=== PATIENT | female | born 1945 | race Caucasian/White ===

== ENCOUNTER → 2016-10-15 17:52 | Outpatient (CLI) | payer MEDICARE ==
[2015-05-01 15:53] VITALS: BMI 32.8
[~2016-10-15 17:52] MED LIST: ACETAMINOPHEN500 M1 PO; ASPIRIN81 MG PO; ATIVAN1 MG PO; BENADRYL50 MG PO; BUMEX 1 MG TAB1 MG PO; CO Q-10100 MG PO; CORTISPORIN CR7.5 GM TOPICAL; COUMADIN1 MG PO; COUMADIN2 MG PO; COUMADIN5 MG PO; CRANBERRY475 MG PO; EDARBYCLOR 40-1 EACH PO; FISH OIL 1,2001 CA1 PO; GLUCOPHAGE500 MG PO; HCTZ25 MG; HYDROCHLOROTHIA25 MG PO; HYDROCODON-ACE1 EAC7 PO; HYDROCODONE-APA1 TAB PO; K-TAB10 MEQ PO; LASIX40 MG PO; LASIX80 MG PO; LEVAQUIN500 MG PO; LISINOPRIL10 MG; LISINOPRIL5 MG GT; MAGNESIUM OXID250 MG PO; MEDROL DOSE PACK4 MG PO; MULTI-DAY VITAM1 TAB PO; MULTIPLE VITAMI1 TA1 PO; NORCO 5/325 TAB1 TA1 PO; NORVASC2.5 MG PO; NORVASC5 MG PO; POTASSIUM CHLO10 ME1 PO; POTASSIUM99 M1 PO; SUPER B COMPLE150 MG PO; VANCOMYCIN250 MG/51 PO; XARELTO15 MG PO
== END | disposition home or self-care (01) ==
LOC: D.MAMMO 13:00
DX: Z12.31 Encounter for screening mammogram for malignant neoplasm of breast (principal)

== ENCOUNTER → 2016-12-01 15:33 | Outpatient (CLI) | payer MEDICARE ==
[2015-05-01 15:53] VITALS: BMI 32.8
== END | disposition home or self-care (01) ==
LOC: D.MAMMO 09:00
DX: R92.2 Inconclusive mammogram (principal)

== ENCOUNTER → 2016-12-18 08:55 | Outpatient (CLI) | payer MEDICARE ==
[2015-05-01 15:53] VITALS: BMI 32.8
[~2016-12-18 08:55] MED LIST changes: -HYDROCODONE-APA1 TAB PO
[2016-12-18 09:45] LABS: INR 1.37 (0.85-1.17); PROTIME 16.8 SECONDS (11.6-15.0)
== END | disposition home or self-care (01) ==
LOC: D.US 08:55
PROVIDERS: Radiology Diagnostic Radiology
DX: N63 Unspecified lump in breast (principal)

== ENCOUNTER 2016-12-31 05:26 | Day surgery (SDC) | payer MEDICARE ==
[2016-12-30 13:43] LABS: BASOPHILS 0.2 % (0-2); EOSINOPHILS 1.8 % (0-7); HEMOGLOBIN 15.5 g/dL (12-16); IMMATURE GRANULOCYTES 0.1 % (0-5); LYMPHOCYTES 28.5 % (15-50); MCH 31.4 pg (26.0-34.0); MCV 95.3 fL (80.0-100.0); MEAN PLATELET VOLUME 12.6 fL (7.4-10.4); NEUTROPHILS 61.4 % (40-80); PLATELET COUNT 185 10x3/uL (130-400); RBC 4.93 10x6/uL (4.00-5.40); RDW 15.2 % (11.5-14.5); WBC 8.2 10x3/uL (4.8-10.8)
[2016-12-30 13:54] LABS: APTT 29.5 SECONDS (22.8-39.4); INR 1.56 (0.85-1.17); PROTIME 18.6 SECONDS (11.6-15.0)
[2016-12-30 13:56] LABS: ANION GAP 14.5 mmol/L (8-16); CALCIUM 8.7 mg/dL (8.5-10.1); CARBON DIOXIDE 27.1 mmol/L (21.0-32.0); CREATININE - SERUM 1.3 mg/dL (0.6-1.3); POTASSIUM - SERUM 3.6 mmol/L (3.5-5.1)
[2016-12-31] MEDS ORDERED: HYDROCODONE-APA1 TAB PO (13:27)
== END 2016-12-31 16:45 | disposition home or self-care (01) ==
LOC: D.OPS 05:26
PROVIDERS: Surgery
DX: C50.412 Malignant neoplasm of upper-outer quadrant of left female breast (principal); D68.51 Activated protein C resistance; I82.409 Acute embolism and thrombosis of unspecified deep veins of unspecified lower extremity; I26.99 Other pulmonary embolism without acute cor pulmonale; E11.9 Type 2 diabetes mellitus without complications; Z01.812 Encounter for preprocedural laboratory examination

== ENCOUNTER → 2017-04-15 19:04 | Outpatient (CLI) | payer MEDICARE ==
[2016-12-31 06:27] VITALS: BMI 33.7
[~2017-04-15 19:04] MED LIST changes: +HYDROCODONE-APA1 TAB PO
== END | disposition home or self-care (01) ==
LOC: D.LABREF 19:04
DX: L89.893 Pressure ulcer of other site, stage 3 (principal)

== ENCOUNTER 2017-04-21 21:49 | Inpatient (IN) | payer MEDICARE ==
[~2017-04-21] VITALS: Ht 162.6 cm; Wt 86.6 kg
--- NOTE | ~2017-04-21 | OP ---
PATIENT NAME: STEPHANIE GUO MEDICAL RECORD: [id number] :43 LOCATION:D.MS [id number] ADMISSION DATE:04/21/17 SURGEON: KP MOSHER DPM DATE OF OPERATION: 04/21/2017 PREOPERATIVE DIAGNOSES: Osteomyelitis, left first ray. POSTOPERATIVE DIAGNOSIS: Osteomyelitis, left first ray. PROCEDURE: Partial first ray amputation, left foot. ANESTHESIA: General per the anesthesia department with infiltration of lidocaine and Marcaine plain on the first ray, approximately 8 cc total. HEMOSTASIS: Left ankle tourniquet at 260 mmHg. PATHOLOGY: Specimen sent for gross and micro identification as well as a culture and sensitivity. PREOPERATIVE DETAILS: The patient was taken to the OR and placed on the operating table in a supine position followed by induction of general anesthesia and infiltration of local anesthetic. The left extremity was then prepped and draped in the usual aseptic technique followed by exsanguination and inflation of tourniquet. A 15 blade was used to create a linear incision over the dorsal aspect of the first metatarsal. The incision was carried distally and then encompassed the hallux, which was disarticulated and removed, and there was noted to be softening of the base of the proximal phalanx of the hallux as well as necrotic changes of the head of the first metatarsal consistent with invasion of bacteria. At this time, the distal half of the first metatarsal was removed with a sagittal saw. A copious irrigation of a pulse wire harness assembler was used to clean the wound. The sesamoids were also removed. Continued irrigation was performed. Good tissue was noted. Following flushing, the skin was closed with 4-0 nylon in a running interlocking technique. The wound was then packed with a quarter-inch iodoform gauze. The wound was then dressed. The tourniquet was deflated prior to dressing the wound, which showed excellent perfusion of the tissue. The wound was dressed then with Adaptic, 4 x 4 and Conform followed by Benjy very lightly. POSTOPERATIVE DETAILS: The patient tolerated the procedure well and left the OR with vital signs stable and vascular status at preoperative levels. The patient was transferred to recovery per anesthesia. The patient will be readmitted to the floor under Dr. Alfaro. TRANSINT:[id number] Voice Confirmation ID: [id number] DOCUMENT ID: [id number] KP MOSHER DPM CC: [id number] DICTATION DATE: 04/28/17 1236 CORDUROY BRUSHER OPERATOR: 04/28/171917 ADM IN [facility] [address] [id number]
[~2017-04-21 21:49] MED LIST changes: +EDARBYCLOR 40-1 EAC1 PO; -EDARBYCLOR 40-1 EACH PO
--- NOTE | 2017-04-21 22:45 | NUR ---
WALKING BY ROOM AND FOUND PT AND IN THERE. ADMISSIONS FAILED TO INFORM ANY MED SURG STAFF THAT THEY WERE LEAVING PT IN ROOM. PT IS ALERT AND ORIENTED AND ABLE TO VERBALIZE NEEDS. PT DENIES ANY PAIN AT THIS TIME. PT IS AMBULATORY BUT WAS INSTRUCTED TO CALL FOR ANY ASSISTANCE NEEDED. PT ORIENTED TO ROOM AND USE OF CALL LIGHT. WILL CONTINUE TO MONITOR. SIDE RAILS ARE UP X 2. BED IS IN LOWEST POSITION. CALL LIGHT IS WITHIN REACH.
--- NOTE | 2017-04-21 23:36 | NUR ---
ADMIT ASSESSMENT COMPLETED. 22G IV SITED TO LEFT FOREARM X 1 ATTEMPT. GOOD BLOOD RETURN. FLUSHES W/O DIFICULTY. ANTIBIOTIC HUNG PER ORDER. PRN TYLENOL ADMINISTERED FOR PAIN 11/13. NO FURTHER NEEDS AT THIS TIME. WILL MONITOR. SIDE RAILS X 2. BED LOW. CALL LIGHT IN REACH.
[2017-04-21] MEDS ORDERED: VITAMIN B COMPL1 TAB PO (23:46)
[2017-04-21] MEDS ORDERED: OSTEO BI-FLEX1 EAC1 PO (23:46)
[2017-04-21] MEDS ORDERED: VITAMIN D3400 UNI1 PO (23:46)
[2017-04-22] VITALS (7 sets, daily range): BP systolic 107–130; BP diastolic 68–85; Ht 162.6 cm; Wt 86.6 kg
--- NOTE | 2017-04-22 00:23 | NUR ---
WOUND CULTURE SENT TO LAB FOR WARRENTED TESTS.
[2017-04-22 05:42] LABS: BASOPHILS 0.1 % (0-2); EOSINOPHILS 2.2 % (0-7); HEMATOCRIT 37.5 % (36.0-48.0); HEMOGLOBIN 12.4 g/dL (12-16); IMMATURE GRANULOCYTES 0.2 % (0-5); LYMPHOCYTES 19.1 % (15-50); MCH 30.9 pg (26.0-34.0); MCHC 33.1 g/dL (31.0-37.0); MCV 93.5 fL (80.0-100.0); MEAN PLATELET VOLUME 11.2 fL (7.4-10.4); MONOCYTES 9.1 % (2-11); NEUTROPHILS 69.3 % (40-80); RBC 4.01 10x6/uL (4.00-5.40); RDW 14.4 % (11.5-14.5); WBC 9.7 10x3/uL (4.8-10.8)
[2017-04-22 05:53] LABS: INR 2.95 (0.85-1.17)
[2017-04-22 05:58] LABS: PLATELET COUNT 283 10x3/uL (130-400)
[2017-04-22 06:27] LABS: ALBUMIN 2.4 g/dL (3.4-5.0); ANION GAP 11.1 mmol/L (8-16); BILIRUBIN - TOTAL 0.82 mg/dL (0.2-1.3); C-REACTIVE PROTEIN 4.5 mg/dL (0.0-0.9); CALCIUM 8.4 mg/dL (8.5-10.1); CARBON DIOXIDE 26.4 mmol/L (21.0-32.0); CREATININE - SERUM 1.4 mg/dL (0.6-1.3); POTASSIUM - SERUM 3.5 mmol/L (3.5-5.1)
[2017-04-22 07:16] LABS: ERYTHROCYTE SEDIMENTATION RATE 60 mm/hr (0-30)
--- NOTE | 2017-04-22 07:20 | NUR ---
REPORT RECIEVED, ASSUMED CARE OF PT. RESTING IN ROOM, EYES SHUT. NO SIGNS OF ACUTE DISTRESS. BED IN LOWEST POSITION, SIDE RAILS UP X 2, CALL LIGHT WITHIN REACH.
--- NOTE | 2017-04-22 12:20 | NUR ---
FAMILY AT BEDSIDE. NO PT COMPLAINTS AT THIS TIME. IV SALINE LOCKED. DRSG CLEAN, DRY AND INTACT. DRSG TO L FOOT, CLEAN DRY AND INTACT. BED IN LOWEST POSITION, SIDE RAILS UP X 2, CALL LIGHT WITHIN REACH.
--- NOTE | 2017-04-22 13:51 | NUR ---
CONTACT ISOLATION PRECAUTIONS IN PLACE. FAMILY AT BEDSIDE. EDUCATED TO WEAR GOWN AND GLOVES WHILE IN ROOM. VOICES UNDERSTANDING.
--- NOTE | 2017-04-22 19:35 | NUR ---
PT IS LYING IN BED ON BACK EYES DIRECTED AT TV, CHANGED PT DRESSING ON RT FOOT. USED WOUND METAL BASE BLOCKER AND GAUZE THEN WRAPPED WITH CUREX. FSBS WAS 156 PT REFUSED INSULIN. WILL CONTINUE WITH PLAN OF CARE. PT IS IN CONTACT ISOLATION
[2017-04-23] VITALS (7 sets, daily range): BP systolic 108–196; BP diastolic 66–113
--- NOTE | 2017-04-23 01:12 | NUR ---
SLEEPING WITHOUT DISTRESS.CALL LIGHT IN REACH
[2017-04-23 06:14] LABS: BASOPHILS 0.3 % (0-2); EOSINOPHILS 4.5 % (0-7); HEMATOCRIT 40.1 % (36.0-48.0); IMMATURE GRANULOCYTES 0.3 % (0-5); LYMPHOCYTES 21.6 % (15-50); MCH 31.4 pg (26.0-34.0); MCHC 32.4 g/dL (31.0-37.0); MEAN PLATELET VOLUME 11.3 fL (7.4-10.4); MONOCYTES 9.2 % (2-11); NEUTROPHILS 64.1 % (40-80); PLATELET COUNT 280 10x3/uL (130-400); RBC 4.14 10x6/uL (4.00-5.40); RDW 14.5 % (11.5-14.5); WBC 8.9 10x3/uL (4.8-10.8)
[2017-04-23 06:15] LABS: MCV 96.9 fL (80.0-100.0)
[2017-04-23 06:21] LABS: ALBUMIN 2.4 g/dL (3.4-5.0); ANION GAP 11.8 mmol/L (8-16); BILIRUBIN - TOTAL 0.93 mg/dL (0.2-1.3); CALCIUM 8.3 mg/dL (8.5-10.1); CARBON DIOXIDE 26.2 mmol/L (21.0-32.0); CREATININE - SERUM 1.5 mg/dL (0.6-1.3); PROTEIN - SERUM 6.6 g/dL (6.4-8.2)
--- NOTE | 2017-04-23 07:15 | NUR ---
REPORT RECIEVED, ASSUMED CARE OF PT. CONTACT ISOLATION PRECAUTIONS IN PLACE. PT RESTING IN BED. NO COMPLAINTS AT THIS TIME. L ARM IV SALINE LOCKED, DRSG CLEAN, DRY AND INTACT. C/O BURNING DURING INFUSION. WILL MONITOR. DRSG TO L FOOT CLEAN, DRY AND INTACT. SCD'S ON. BED IN LOWEST POSITION, SIDE RAILS UP X 2, CALL LIGHT WITHIN REACH.
[2017-04-23 07:45] LABS: INR 2.77 (0.85-1.17); PROTIME 29.5 SECONDS (11.6-15.0)
--- NOTE | 2017-04-23 11:06 | NUR ---
PT L ARM IV REDNESS AND SWELLING. D/C'D, CATHETER INTACT, BANDAGE APPLIED. IV RE-SITED TO R FOREARM, PT TOLERATED WELL, NO COMPLAINTS. SALINE LOCKED, DRSG APPLIED, CLEAN, DRY AND INTACT.
--- NOTE | 2017-04-23 11:54 | NUR ---
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 It measures 2cm x 2cm x 1.5cm x 1.2cm from 6-12 oclock. Bone can be probed. Pt has no feeling in this area. The wound bed is mera/pina necrotic tissue and the and the surrounding edges are calloused. There is no odor. Pt states surgery is planned for next week for amputation d/t infection in the bone. The wound is being cleansed daily with wound street cleaner and new dry dressings applied. No c/o pain or discomfort. Wound care will continue to monitor.
--- NOTE | 2017-04-23 15:13 | NUR ---
PT VISITING WITH FAMILY IN ROOM. IV INFUSING ORDERED, DRSG CLEAN, DRY AND INTACT. L FOOT DRSG CLEAN, DRY AND INTACT. NO COMPLAINTS AT THIS TIME. BED IN LOWEST POSITION, SIDE RAILS UP X 2, CALL LIGHT WITHIN REACH.
[2017-04-23 15:47] LABS: HEMOGLOBIN A1C 8.5 % (4.8-6.0)
--- NOTE | 2017-04-23 19:07 | NUR ---
FAMILY AT BEDSIDE. CONTACT ISOLATION PRECAUTIONS. IV INFUSING ORDERED, DRSG CLEAN, DRY AND INTACT. NO COMPLAINTS AT THIS TIME. BED IN LOWEST POSITION, SIDE RAILS UP X 2, CALL LIGHT WITHIN REACH.
--- NOTE | 2017-04-24 02:00 | NUR ---
PT RESTING QUIETLY, EYES CLOSED. RESP EASY, UNLABORED. NO DISTRESS NOTED. CONTINUE REGULATION SUPERVISOR'S PLAN OF CARE.
[2017-04-24 03:58] VITALS: BP 137/85
--- NOTE | 2017-04-24 07:58 | NUR ---
UP TO BATHROOM, DENIES NEEDS, BED LOWEST POSITION, CALL LIGHT IN REACH, WILL CONTINUE TO MONITOR
[2017-04-24 08:00] LABS: BASOPHILS 0.3 % (0-2); EOSINOPHILS 4.5 % (0-7); HEMATOCRIT 39.8 % (36.0-48.0); HEMOGLOBIN 13.1 g/dL (12-16); IMMATURE GRANULOCYTES 0.3 % (0-5); LYMPHOCYTES 19.3 % (15-50); MCH 30.8 pg (26.0-34.0); MCHC 32.9 g/dL (31.0-37.0); MEAN PLATELET VOLUME 11.5 fL (7.4-10.4); MONOCYTES 7.8 % (2-11); NEUTROPHILS 67.8 % (40-80); PLATELET COUNT 307 10x3/uL (130-400); RBC 4.26 10x6/uL (4.00-5.40); RDW 14.5 % (11.5-14.5); WBC 9.5 10x3/uL (4.8-10.8)
[2017-04-24 08:04] LABS: MCV 93.4 fL (80.0-100.0)
[2017-04-24 08:06] LABS: INR 2.25 (0.85-1.17)
[2017-04-24 08:31] LABS: ALBUMIN 2.6 g/dL (3.4-5.0); ANION GAP 11.4 mmol/L (8-16); BILIRUBIN - TOTAL 1.2 mg/dL (0.2-1.3); CALCIUM 8.5 mg/dL (8.5-10.1); CARBON DIOXIDE 27.7 mmol/L (21.0-32.0); CREATININE - SERUM 1.5 mg/dL (0.6-1.3); POTASSIUM - SERUM 4.1 mmol/L (3.5-5.1); PROTEIN - SERUM 7.2 g/dL (6.4-8.2)
[2017-04-24 09:02] VITALS: BP 118/77
[2017-04-24 12:44] VITALS: BP 129/76
[2017-04-24 15:36] VITALS: BP 100/64
--- NOTE | 2017-04-24 16:45 | NUR ---
PATIENT SITTING UP RIGHT IN BED. NO SIGNS OF DISTRESS NOTED. GUEST AT BEDSIDE. SIDE RAILS UP X2. BED IN LOW POSITION. CALL LIGHT IN REACH.
[2017-04-24 19:00] VITALS: BP 113/62
[2017-04-25] VITALS: BP 116/70
[2017-04-25 04:00] VITALS: BP 113/76; BP 187/97
--- NOTE | 2017-04-25 04:14 | NUR ---
PATIENT'S ZOSYN IS LATE BECAUSE HER IV INFILTRATED. WE ARE STILL ATTEMPTING TO GAIN IV ACCESS ON THE PATIENT. I HAVE ATTEMPTED AN IV, CANDELARIO EASON HAS ATTEMPTED AN IV, AND CANDELARIO HAYES HAS ATTEMPTED AN IV. HELEN VALENZUELAMALT ROASTER IS ALSO GOING TO ATTEMPT AN IV.
--- NOTE | 2017-04-25 04:50 | NUR ---
CANDELARIO MANNING RESITED THE PATIENT'S IV IN HER L FA WITH A 22G ON THE FIRST ATTEMPT.
--- NOTE | 2017-04-25 07:30 | NUR ---
A&O, SITTING ON BEDSIDE, AWAITING BREAKFAST, BED LOWEST POSITON, CALL LIGHT IN REACH, NO SKID SOCK ON, DENIES NEEDS, WILL CONTINUE TO MONITOR
[2017-04-25 07:31] LABS: BASOPHILS 0.3 % (0-2); HEMATOCRIT 38.8 % (36.0-48.0); HEMOGLOBIN 12.7 g/dL (12-16); IMMATURE GRANULOCYTES 0.3 % (0-5); LYMPHOCYTES 18.3 % (15-50); MCH 30.6 pg (26.0-34.0); MCHC 32.7 g/dL (31.0-37.0); MCV 93.5 fL (80.0-100.0); MEAN PLATELET VOLUME 11.3 fL (7.4-10.4); MONOCYTES 8.3 % (2-11); NEUTROPHILS 68.8 % (40-80); PLATELET COUNT 292 10x3/uL (130-400); RBC 4.15 10x6/uL (4.00-5.40); RDW 14.6 % (11.5-14.5); WBC 8.8 10x3/uL (4.8-10.8)
[2017-04-25 07:50] LABS: INR 2.1 (0.85-1.17); PROTIME 23.6 SECONDS (11.6-15.0)
--- NOTE | 2017-04-25 07:55 | NUR ---
PATIENT SITTING UP ON SIDE OF BED ALERT. NO SIGNS OF DISTRESS NOTED. BED IN LOW POSITION. CALL LIGHT IN REACH.
[2017-04-25 08:01] LABS: ALBUMIN 2.4 g/dL (3.4-5.0); ANION GAP 11.7 mmol/L (8-16); BILIRUBIN - TOTAL 0.91 mg/dL (0.2-1.3); CALCIUM 8.4 mg/dL (8.5-10.1); CARBON DIOXIDE 26.1 mmol/L (21.0-32.0); CREATININE - SERUM 1.7 mg/dL (0.6-1.3); POTASSIUM - SERUM 3.8 mmol/L (3.5-5.1); PROTEIN - SERUM 6.9 g/dL (6.4-8.2)
[2017-04-25 09:41] VITALS: BP 112/67
--- NOTE | 2017-04-25 11:30 | NUR ---
DRESSING TO LEFT FOOT CLEAN DRIED AND BANDAGED
[2017-04-25 12:33] VITALS: BP 114/68
[2017-04-25 17:38] VITALS: BP 116/66
[2017-04-25 20:00] VITALS: BP 125/76
--- NOTE | 2017-04-25 20:15 | NUR ---
RESPONDED TO PATIENT'S CALL LIGHT. PATIENT DENIES NEEDS AT THIS TIME. BED IN LOWEST POSITION AND CALL LIGHT WITHIN REACH. ENCOURAGED THE PATIENT TO CALL IF SHE HAS NEEDS AND ASSURED HER I WOULD HE IN WITH HER MEDS SOON POSSIBLE.
--- NOTE | 2017-04-25 22:20 | NUR ---
ASSISTED PATIENT TO AND FROM RESTROOM AND ADMINISTERED NIGHT MEDS.
[2017-04-26] VITALS: BP 124/71
[2017-04-26 04:00] VITALS: BP 114/72
[2017-04-26 06:51] LABS: BASOPHILS 0.2 % (0-2); EOSINOPHILS 4.3 % (0-7); HEMATOCRIT 40.6 % (36.0-48.0); HEMOGLOBIN 13.1 g/dL (12-16); IMMATURE GRANULOCYTES 0.3 % (0-5); MCH 30.4 pg (26.0-34.0); MCHC 32.3 g/dL (31.0-37.0); MCV 94.2 fL (80.0-100.0); MEAN PLATELET VOLUME 11.5 fL (7.4-10.4); MONOCYTES 7.3 % (2-11); NEUTROPHILS 64.9 % (40-80); PLATELET COUNT 322 10x3/uL (130-400); RBC 4.31 10x6/uL (4.00-5.40); RDW 14.7 % (11.5-14.5); WBC 8.7 10x3/uL (4.8-10.8)
[2017-04-26 07:12] LABS: ALBUMIN 2.5 g/dL (3.4-5.0); ANION GAP 9.8 mmol/L (8-16); BILIRUBIN - TOTAL 0.9 mg/dL (0.2-1.3); CALCIUM 8.5 mg/dL (8.5-10.1); CARBON DIOXIDE 27.1 mmol/L (21.0-32.0); CREATININE - SERUM 1.6 mg/dL (0.6-1.3); INR 1.7 (0.85-1.17); POTASSIUM - SERUM 3.9 mmol/L (3.5-5.1); PROTEIN - SERUM 7.1 g/dL (6.4-8.2); PROTIME 19.9 SECONDS (11.6-15.0)
--- NOTE | 2017-04-26 07:45 | NUR ---
SITTING UP ON BEDSIDE, DENIES NEEDS, A&O, CALL LIGHT IN REACH, BED LOWEST POSITION, WILL CONTINUE TO MONITOR
[2017-04-26 10:09] VITALS: BP 117/68
--- NOTE | 2017-04-26 12:10 | NUR ---
CO-SIGNED INSULIN WITH PTS NURSE AT THIS TIME, PT SITTING UP TO SIDE OF BED WITH NO COMPLAINTS OF PAIN OR DISCOMFORT. BED IN LOW POSITION AND CALL LIGHT WITHIN REACH. WILL CONTINUE TO MONITOR.
[2017-04-26 12:57] VITALS: BP 105/67
[2017-04-26 17:16] VITALS: BP 107/69
--- NOTE | 2017-04-26 17:17 | NUR ---
Patient Name: STEPHANIE UGO Admission Status: Elective Accout number: [id number] Admission Date: 04-21-2017 : 1945 Admission Diagnosis:TYPE 2 DIABETES MELLITUS WITH FOOT ULCER Attending: CHRISTIANO Current LOS: 5 Anticipated DC Date: 04-30-2017 Planned Disposition: Home Primary Insurance: [employer] CHOICE PPO MCR ADVANT Discharge Planning Comments: CM MET WITH PATIENT REGARDING D/C NEEDS AND PLANS. PATIENT STATED SHE LIVES WITH HER SPOUSE (JOE) AND HE WILL DRIVE HER HOME AT DISCHARGE. PATIENT STATED THERE ARE 3 STEPS W/RAILS TO ENTER HOME AND NO STAIRS INSIDE. PATIENT HAS A CANE AND GLUCOMETER /CHECKS 1-2 X A DAY. PATIENTS PCP IS DR. COLLIER AND PHARMACY IS [facility]. PATIENT HAS A [employer] INSURANCE NURSE THAT COMES BY WEEKLY SHE STATED. PATIENT DOES NOT WANT HOME HEALTH UNLESS ABSOLUTELY NECCESSARY. CM WILL CONTINUE TO FOLLOW PATIENT WITH D/C NEEDS AND PLANS. PCP DR. AMIRA ALEJANDRE-[phone] JOE (SPOUSE) [phone] Exercise Instructor: Susan Choi Is the patient Alert and Oriented? Yes 0 * How many steps to enter\exit or inside your home? 3 W/RAILS 0 * PCP DR. COLLIER 0 * Pharmacy [facility] 0 * Preadmission Environment Home with Family 0 * ADLs Independent 0 * Equipment Cane Glucometer 0 * List name and contact numbers for known caregivers / representatives who currently or will assist patient after discharge: JOE [phone] * Community resources currently utilized None 0 * Additional services required to return to the preadmission environment? Yes 0 * Can the patient safely return to the preadmission environment? Yes 0 * Has this patient been hospitalized within the prior 30 days at any hospital? No 0 Grand Total: 0
[2017-04-26 19:00] VITALS: BP 110/65
--- NOTE | 2017-04-26 19:30 | NUR ---
PATIENT AMBULATING IN THE MAJANO WITH . GAIT STEADY. NO SIGNS OF DISTRESS NOTED.
--- NOTE | 2017-04-26 19:40 | NUR ---
PT IS LYING IN BED WATCHING TV AND VISITING WITH SPOUSE, BED IS IN LOW POSITION CALL LIGHT IN REACH, PT REQUESTED BANDAGE BE CHANGED WITH NIGHT TIME MEDS. NO OTHER NEEDS AT THIS TIME, WILL CONTINUE TO MONITOR
--- NOTE | 2017-04-26 22:30 | NUR ---
REMOVED PT DRESSING, DRAINAGE WAS SCANTWITH SOME BLOOD TINGED, CLEANED WITH WOUND LINE CLOSER AND APPLIED ABD DRESSING AND WRAPPED WITH KURLEX, PLACED NEW SOCK ON PT FOOT AND WILL CONTINUE TO MONITOR
[2017-04-27] VITALS: BP 116/64
[2017-04-27 04:00] VITALS: BP 134/80
[2017-04-27 07:07] LABS: BASOPHILS 0.3 % (0-2); EOSINOPHILS 3.5 % (0-7); HEMATOCRIT 41.9 % (36.0-48.0); HEMOGLOBIN 13.5 g/dL (12-16); IMMATURE GRANULOCYTES 0.4 % (0-5); MCH 30.4 pg (26.0-34.0); MCHC 32.2 g/dL (31.0-37.0); MCV 94.4 fL (80.0-100.0); MEAN PLATELET VOLUME 11.3 fL (7.4-10.4); MONOCYTES 7.4 % (2-11); NEUTROPHILS 69.4 % (40-80); PLATELET COUNT 296 10x3/uL (130-400); RBC 4.44 10x6/uL (4.00-5.40); RDW 14.8 % (11.5-14.5); WBC 10.1 10x3/uL (4.8-10.8)
[2017-04-27 07:18] LABS: INR 1.55 (0.85-1.17); PROTIME 18.6 SECONDS (11.6-15.0)
[2017-04-27 07:22] LABS: ALBUMIN 2.6 g/dL (3.4-5.0); BILIRUBIN - TOTAL 0.96 mg/dL (0.2-1.3); CARBON DIOXIDE 21.3 mmol/L (21.0-32.0); CREATININE - SERUM 1.6 mg/dL (0.6-1.3); POTASSIUM - SERUM 4.3 mmol/L (3.5-5.1); PROTEIN - SERUM 7.4 g/dL (6.4-8.2)
--- NOTE | 2017-04-27 07:49 | NUR ---
AM ROUNDS - PT IN BED AND APPEARS TO BE SLEEPING WITH EQUAL AND NON LABORED BREATHING. BED AT LOWEST POSITION. SIDE RAIL UP X1. IV TO LEFT FA, NS AT 50CC/HR. WILL CONTINUE TO MONITOR
[2017-04-27 12:05] VITALS: BP 131/74
--- NOTE | 2017-04-27 12:58 | NUR ---
CHANGED DRESSING TO LEFT GREAT TOE. CLEANED WITH WOUND ENDOSCOPY SUPPORT SPECIALIST, DRIED, APPLIE 4X4 GAUZE AND WRAPED WITH KERLIX. APPLIED A CLEAN NON SKID SOCKS ON. WILL CONTINUE TO MONITOR
--- NOTE | 2017-04-27 15:37 | NUR ---
NUTRITION MONITORING & EVAL CHART REVIEWED, TOLERATING ADA DIET WITH 75% INTAKE RECENT MEAL. NPO AFTER MN FOR AM PROCEDURE. WILL PROVIDE DIET WHEN RESUMED, MONITOR INTAKE. RD FOLLOWING
[2017-04-27 17:44] VITALS: BP 128/68
[2017-04-27 23:59] VITALS: BP 116/68
[2017-04-28 04:00] VITALS: BP 113/69
[2017-04-28 05:37] LABS: BASOPHILS 0.1 % (0-2); EOSINOPHILS 4.4 % (0-7); HEMATOCRIT 39.4 % (36.0-48.0); HEMOGLOBIN 12.6 g/dL (12-16); IMMATURE GRANULOCYTES 0.5 % (0-5); LYMPHOCYTES 20.6 % (15-50); MCH 30.5 pg (26.0-34.0); MCV 95.4 fL (80.0-100.0); MEAN PLATELET VOLUME 11.3 fL (7.4-10.4); MONOCYTES 7.2 % (2-11); NEUTROPHILS 67.2 % (40-80); PLATELET COUNT 284 10x3/uL (130-400); RBC 4.13 10x6/uL (4.00-5.40); RDW 15.1 % (11.5-14.5); WBC 7.7 10x3/uL (4.8-10.8)
[2017-04-28 05:59] LABS: ALBUMIN 2.5 g/dL (3.4-5.0); ANION GAP 15.3 mmol/L (8-16); BILIRUBIN - TOTAL 0.8 mg/dL (0.2-1.3); CALCIUM 8.4 mg/dL (8.5-10.1); CREATININE - SERUM 1.4 mg/dL (0.6-1.3); POTASSIUM - SERUM 4.3 mmol/L (3.5-5.1); PROTEIN - SERUM 6.5 g/dL (6.4-8.2)
[2017-04-28 09:33] VITALS: BP 112/70
--- NOTE | 2017-04-28 10:47 | NUR ---
PRE-OP MEDS GIVEN. PT RESTING QUIETLY IN ROOM. FAMILY IN ROOM. DENIES OTHER NEEDS AT THIS TIME.
--- NOTE | 2017-04-28 10:56 | NUR ---
PT BEING TRANSFER TO OR VIA BED. WENT WITH HER.
[2017-04-28 13:12] VITALS: BP 131/56
--- NOTE | 2017-04-28 13:30 | NUR ---
PT ARRIVED FROM OR VIA BED. ON ROOM AIR. OPEN EYES TO VOICE. DRESSING ON LEFT FOOT, CLEAN, DRY AND INTACT. PT RESTING COMFORTABLY. IN ROOM. NO OTHER NEEDS AT THIS TIME.
[2017-04-28 19:00] VITALS: BP 109/62
--- NOTE | 2017-04-28 19:56 | NUR ---
PT IS LYING IN BED WITH LEFT FOOT PROPPED UP, STATED SURGERY WENT VERY WELL AND IS NOT HURTING, PT NOT HAPPY ABOUT HAVING TO USE BED KIMBALL AND WANTS TO GET UP, ADVISED TO FOLLOW DOCTORS ORDERS UNTIL FURTHER NOTICE, BED IS IN LOW POSITION CALL LIGHT IN REACH
--- NOTE | 2017-04-28 23:19 | NUR ---
RESTING QUIETLY WITH EYES CLOSED. ON ROOM AIR. RESPIRATIONS ARE EVEN AND UNLABORED. NO SIGNS OF DISTRESS NOTED. BED IN LOWEST POSITION, CALL LIGHT IN REACH. BED RAILS UP X'S 1.
[2017-04-29] VITALS: BP 111/64
[2017-04-29 04:00] VITALS: BP 113/71
[2017-04-29 07:10] LABS: BASOPHILS 0.2 % (0-2); EOSINOPHILS 2.2 % (0-7); HEMATOCRIT 38.6 % (36.0-48.0); HEMOGLOBIN 12.2 g/dL (12-16); IMMATURE GRANULOCYTES 0.2 % (0-5); LYMPHOCYTES 16.7 % (15-50); MCH 30.5 pg (26.0-34.0); MCHC 31.6 g/dL (31.0-37.0); MCV 96.5 fL (80.0-100.0); MEAN PLATELET VOLUME 11.4 fL (7.4-10.4); MONOCYTES 8.6 % (2-11); NEUTROPHILS 72.1 % (40-80); PLATELET COUNT 248 10x3/uL (130-400); RDW 15.3 % (11.5-14.5); WBC 9.8 10x3/uL (4.8-10.8)
--- NOTE | 2017-04-29 07:45 | NUR ---
PT AWAKE, ALERT AND ORIENTED. RESTING ON HER BACK. REPORTS NO PAIN AT THIS TIME. LUNGS ARE CLEAR. BS ACTIVE X 4 QUADRANTS. DRESSING ON LEFT FOOT, CLEAN, DRY AND INTACT. IS IN THE ROOM. PT DENIES OTHER NEEDS AT THIS TIME. CALL LIGHT IN REACH.
[2017-04-29 07:47] LABS: ALBUMIN 2.6 g/dL (3.4-5.0); ANION GAP 13.7 mmol/L (8-16); BILIRUBIN - TOTAL 0.84 mg/dL (0.2-1.3); CALCIUM 8.3 mg/dL (8.5-10.1); CARBON DIOXIDE 24.1 mmol/L (21.0-32.0); CREATININE - SERUM 1.5 mg/dL (0.6-1.3); POTASSIUM - SERUM 4.8 mmol/L (3.5-5.1); PROTEIN - SERUM 6.7 g/dL (6.4-8.2)
[2017-04-29 09:49] VITALS: BP 129/66
--- NOTE | 2017-04-29 11:28 | NUR ---
DRESSING ON LEFT FOOT CHANGED. WOUND BED PINK. MODERATED AMOUNT OF BLEEDING NOTED ON OLD DRESSING. WOUND CLEANSED AND 4X4 APPLIED WITH CURLIX BANDAGE AND EUSEBIO BANDAGE. PT REPORTS NO PAIN AT THIS TIME. BS 189. 2 UNITS OF HUMALOG GIVEN PER SLIDING SCALE. DENIES OTHER NEEDS AT THIS TIME.
[2017-04-29 14:21] VITALS: BP 119/62
[2017-04-29 17:01] VITALS: BP 134/65
--- NOTE | 2017-04-29 17:25 | NUR ---
BS 191. 2 UNITS OF HUMALOG GIVEN PER SLIDING SCALE. PT RESTING QUIETLY IN BED. DENIES OTHER NEEDS AT THIS TIME.
[2017-04-29 20:00] VITALS: BP 107/67
[2017-04-30] VITALS: BP 127/77
[2017-04-30 04:00] VITALS: BP 125/78
--- NOTE | 2017-04-30 04:49 | NUR ---
PATIENT RESTING WITH EYES CLOSED AND NO VISIBLE SIGNS OF DISTRESS. BED IN LOWEST POSITION AND CALL LIGHT WITHIN REACH.
[2017-04-30 07:16] LABS: HEMATOCRIT 38.3 % (36.0-48.0); HEMOGLOBIN 12.5 g/dL (12-16); LYMPHOCYTES 17.5 % (15-50); MCH 30.9 pg (26.0-34.0); MCHC 32.6 g/dL (31.0-37.0); MCV 94.6 fL (80.0-100.0); MEAN PLATELET VOLUME 11.2 fL (7.4-10.4); PLATELET COUNT 207 10x3/uL (130-400); RBC 4.05 10x6/uL (4.00-5.40); RDW 15.6 % (11.5-14.5); WBC 7.7 10x3/uL (4.8-10.8)
[2017-04-30 07:47] LABS: ALBUMIN 2.5 g/dL (3.4-5.0); ANION GAP 14.8 mmol/L (8-16); BILIRUBIN - TOTAL 0.8 mg/dL (0.2-1.3); CALCIUM 8.4 mg/dL (8.5-10.1); CARBON DIOXIDE 21.3 mmol/L (21.0-32.0); CREATININE - SERUM 1.5 mg/dL (0.6-1.3); POTASSIUM - SERUM 4.1 mmol/L (3.5-5.1)
[2017-04-30 08:32] VITALS: BP 131/82
--- NOTE | 2017-04-30 13:42 | NUR ---
REMOVED OLD DRESSING. MODERATE AMOUNT OF BLOOD NOTED. SWELLING HAS DECREASED. WOUND BED PINK. NO EXUDATED NOTED. WOUND CLEANSE WITH SAF-CLENS. REDRESSED WITH 4X4S AND CURLEX. PT TOLERATED WELL. REPORTS PAIN 1/10. RESTING COMFORTABLY. NO OTHER NEEDS AT THIS TIME.
[2017-04-30 14:13] VITALS: BP 129/79
[2017-04-30] MEDS ORDERED: FLORAJEN3 CAPS460 MG PO (14:33)
[2017-04-30] MEDS ORDERED: PROTONIX40 MG PO (14:34)
[2017-04-30] MEDS ORDERED: ACTOS15 MG PO (14:35)
[2017-04-30] MEDS ORDERED: GLUCOSAMINE & C1 CAP PO (14:35)
--- NOTE | 2017-04-30 15:05 | NUR ---
CM REASSESSMENT NOTE: PATIENT IS DISCHARGING HOME TODAY WITH KENZIE GEORGE (DEANNA SIGNED). PATIENTS FAMILY OR FRIEND WILLL DRIVE HER HOME. IMM SIGNED
--- NOTE | 2017-04-30 15:29 | NUR ---
CM REASSESSMENT NOTE: PATIENT WILL NOT NEED HOME HEALTH PER JAIR HERNANDEZ. DOCTOR MOSHER IS SEEING THE PATIENT FOR WOUND CARE THIS WEEKEND.
[2017-04-30 16:46] VITALS: BP 136/68
--- NOTE | 2017-04-30 17:00 | NUR ---
DISCHARGE INSTRUCTIONS GIVEN. PT ROLLED IN WHEELCHAIR OUT TO CAR.
== END 2017-04-30 17:00 | disposition home or self-care (01) | DRG 617 ==
LOC: D.MS 21:49
PROVIDERS: Emergency Medicine; Family Medicine; ADMIT Family Medicine
PROC: 0Y6N0Z9 Detachment at Left Foot, Partial 1st Ray, Open Approach (ICD-10-PCS; principal; 2017-04-23)
DX: E11.69 Type 2 diabetes mellitus with other specified complication (principal); M86.9 Osteomyelitis, unspecified; L03.116 Cellulitis of left lower limb; E11.621 Type 2 diabetes mellitus with foot ulcer; L97.529 Non-pressure chronic ulcer of other part of left foot with unspecified severity; E11.628 Type 2 diabetes mellitus with other skin complications; E11.42 Type 2 diabetes mellitus with diabetic polyneuropathy; N17.9 Acute kidney failure, unspecified; Z95.0 Presence of cardiac pacemaker; I48.91 Unspecified atrial fibrillation; Z79.01 Long term (current) use of anticoagulants; I25.10 Atherosclerotic heart disease of native coronary artery without angina pectoris; B95.2 Enterococcus as the cause of diseases classified elsewhere; B96.89 Other specified bacterial agents as the cause of diseases classified elsewhere; I11.0 Hypertensive heart disease with heart failure; I50.9 Heart failure, unspecified

== ENCOUNTER → 2017-05-03 13:58 | Outpatient (CLI) | payer MEDICARE ==
[2017-04-22 14:01] VITALS: BMI 32.8
[~2017-05-03 13:58] MED LIST changes: +ACTOS15 MG PO; +FLORAJEN3 CAPS460 MG PO; +GLUCOSAMINE & C1 CAP PO; +OSTEO BI-FLEX1 EAC1 PO; +PROTONIX40 MG PO; +VITAMIN B COMPL1 TAB PO; +VITAMIN D3400 UNI1 PO
== END | disposition home or self-care (01) ==
LOC: D.CT 13:58
DX: M86.9 Osteomyelitis, unspecified (principal)

== ENCOUNTER 2017-05-07 21:07 | Inpatient (IN) | payer MEDICARE ==
[~2017-05-07] VITALS: Ht 167.6 cm; Wt 80.3 kg
--- NOTE | ~2017-05-07 | EEG ---
PATIENT:STEPHANIE GUO DATE OF SERVICE: 05/08/17 MEDICAL RECORD: [id number] DATE OF : 41 LOCATION:D.214 D.M2 ADMISSION DATE: 05/08/17 REFERRING PHYSICIAN: INTERPRETING PHYSICIAN: LYLE MATHEW MD DATE OF SERVICE: 05/11/2017 Referred by myself as an inpatient, currently in room 2140. ELECTROENCEPHALOGRAM NUMBER: [id number]. DATE OF EXAMINATION: 05/11/2017 at 1:20 p.m. TECHNICAL DATA: This electroencephalographic recording consisted of approximately 20 minutes of data collection utilizing the international 10/20 system of electrode placement and both referential and non-referential montages. Sixteen channels of electrocerebral recording are accompanied by a 17th channel dedicated to the electrocardiographic rhythm and 2 channels of electromyographic recording. Recording is performed entirely in the comatose state utilizing activation by photic stimulation. ELECTROENCEPHALOGRAPHIC DATA: The entirety of the recorded electrocerebral activity is performed in the comatose state. Electromyographic artifact is diminished and rapid eye movements are not seen. The study is monotonous and consists of a mixture of slow wave activities ranging from 2-5 Hz predominantly delta range. This activity is irregular in morphology, generalized and symmetric in distribution. No focal slowing is identified. No epileptiform discharges are seen. Photic stimulation induces no change in the recorded electrocerebral activity. INTERPRETATION: Continuous slow, generalized (coma). This electroencephalographic recording is indicative of a moderately severe diffuse encephalopathy. TRANSINT:[id number] Voice Confirmation ID: [id number] DOCUMENT ID: [id number] LYLE MATHEW MD CC: [id number] DICTATION DATE: 05/12/1743 MEDICAL OFFICE SECRETARY: 05/12/17 0856 ADM IN [facility] [address] [id number]
[2017-05-07 21:29] LABS: BASOPHILS 0.2 % (0-2); EOSINOPHILS 2.9 % (0-7); HEMATOCRIT 43.9 % (36.0-48.0); HEMOGLOBIN 14.4 g/dL (12-16); IMMATURE GRANULOCYTES 0.3 % (0-5); LYMPHOCYTES 24.6 % (15-50); MCH 31.2 pg (26.0-34.0); MCHC 32.8 g/dL (31.0-37.0); MCV 95.2 fL (80.0-100.0); MEAN PLATELET VOLUME 12.1 fL (7.4-10.4); MONOCYTES 8.7 % (2-11); NEUTROPHILS 63.3 % (40-80); PLATELET COUNT 248 10x3/uL (130-400); RBC 4.61 10x6/uL (4.00-5.40); RDW 15.8 % (11.5-14.5); WBC 11.9 10x3/uL (4.8-10.8)
[2017-05-07 21:37] LABS: APTT 25.7 SECONDS (22.8-39.4); INR 1.05 (0.85-1.17); PROTIME 13.6 SECONDS (11.6-15.0)
[2017-05-07 21:43] LABS: ALBUMIN 3.2 g/dL (3.4-5.0); ANION GAP 14.6 mmol/L (8-16); BILIRUBIN - TOTAL 0.72 mg/dL (0.2-1.3); CALCIUM 9.5 mg/dL (8.5-10.1); CARBON DIOXIDE 26.4 mmol/L (21.0-32.0); CREATININE - SERUM 1.9 mg/dL (0.6-1.3); PROTEIN - SERUM 8.3 g/dL (6.4-8.2)
[2017-05-08] VITALS: BP 99/47
--- NOTE | 2017-05-08 01:15 | NUR ---
REC FROM ER VIA STRETCHER. TRANSFERED TO BED. UNRESPONSIVE AND FLACCID. RR 17, SNORING WITH MUCUS DRAINING FROM CORNER OF MOUTH. EYES PARTIALLY OPEN AND DOES NOT FOCUS. ARRIVED FROM ER ON AT 2L/NC. 02 SAT'S AT 94%. AX TEMP 98.8. B/P 99/52. ORDERS STATE ADMIT FOR COMFORT CARE. CLEANED MUSCUS FROM HER MOUTH. DOES NOT APPEAR IN PAIN. FAMILY PRESENT IN ROOM, VERY TEARFUL. NO QUESTIONS OR CONCERNS VOICED.
[2017-05-08 01:23] VITALS: BP 99/52; BMI 30.6
--- NOTE | 2017-05-08 05:57 | NUR ---
TRIED TO SUCTION PATIENT'S SECRETIONS, BUT SHE HAD HAD HER JAWS CLAMPED SHUT AND COULD ONLY SUCTION IN HER CHEEKS. WILL GET ORDER FOR ATROPINE TO HELP DRY UP HER SECRETIONS.
--- NOTE | 2017-05-08 07:10 | NUR ---
RECEIVED REPORT. ASSUMED CARE OF PATIENT. PATIENT RESTING WITH EYES CLOSED. LETHARGIC AND FLACCID. FAMILY AT BEDSIDE. GENTLE SUCTION PROVIDED TO ORAL CAVITY AT THIS TIME. 30 SECOND PERIODS OF APNEA NOTED. COMFORT MEASURES PROVIDED.
[2017-05-08 08:00] VITALS: BP 114/63
--- NOTE | 2017-05-08 09:32 | NUR ---
ATROPINE GTTS ADMINISTERED AT THIS TIME AFTER SUCTIONING ORAL CAVITY AND REPOSITIONING PATIENT. PATIENT BITTING DOWN ON SUCTION CATHETER. FAMILY REMAINS AT BEDSIDE. COARSE WHEEZES AND CRACKLES SCATTERED THROUGHTOUT LUNG FIELD. CONTINUE WITH COMFORT CARES.
--- NOTE | 2017-05-08 11:26 | NUR ---
ORAL SUCTIONING PROVIDED. LUNGS ASCULTATED AND CONTINUE WITH INCREASED COARSE BREATH SOUNDS. FAMILY REMAINS AT BEDSIDE. COMFORT MEASURES PROVIDED.
[2017-05-08 12:00] VITALS: BP 115/67
--- NOTE | 2017-05-08 13:36 | NUR ---
COMPLETE BED BATH AND LINEN CHANGE PROVIDED. INCONTINENT CARES PROVIDED. FAMILY REMAINS AT BEDSIDE. CONTINUE WITH COMFORT CARE.
--- NOTE | 2017-05-08 14:15 | NUR ---
APPROACHED BY THE FAMILY ABOUT A CXR TO SEE IF PATIENT WAS DEVELOPING PNEUMONIA OR HAD ASPIRATED ON SECRETIONS. INFORMED FAMILY I WOULD ASK FOR A CXR BUT WITH ALL DO RESPECT WHY ARE WE ASKING FOR A CHEST XR IF NO TREATMENT IS GOING TO BE RENDERED OTHER THAN COMFORT MEASURES? FEMALE ASKING FOR THIS CXR STATED WELL LET ME ASK MY DAD IF HE WOULD LIKE TO HAVE ONE DONE. PATIENTS STATED HE DID NOT WANT A CXR, THAT THE PATIENT WOULD NOT WANT ANYTHING DONE, JUST TO KEEP HER COMFORTABLE. ASKED PATIENTS IF HE WAS SATISFIED WITH THE COMFORT CARE BEING PROVIDED OR WOULD HE LIKE TO SPEAK WITH A HOSPICE NURSE AND HE STATED NO HOSPICE THAT HE WAS OKAY WITH THE CARES BEING RENDERED AT THIS TIME. ASKED THE FAMILY IF THERE WAS ANYTHING THAT I COULD BRING THEM AND THEY HAD NO NEEDS AT THIS TIME.
--- NOTE | 2017-05-08 14:25 | NUR ---
PER MELO, VERBAL ORDER RECEIVED TO CHANGE ATROPINE DROPS TO EVERY HOUR NEEDED. ORDER IMPLEMENTED AT THIS TIME.
--- NOTE | 2017-05-08 15:54 | NUR ---
PATIENT MEDICATED TO PREVENT NAUSEA PRIOR TO ADMINISTERING DILAUDID. PATIENT WITH ELEVATED HEARTRATE, ELEVATED RESP AND FAMILY REPORTED HER LEGS JERKING EVERY ONCE IN A WHILE. MEDICATED FOR COMFORT. LUNGS CONTINUE TO SOUND VERY COARSE AND CONGESTED IN UPPER LOBES, "RATTELING". FAMILY REMAINS AT BEDSIDE. TYLENOL SUPP ORDERED FOR ELEVATED TEMP. COMFORT MEASURES CONTINUE AT THIS TIME.
--- NOTE | 2017-05-08 16:39 | NUR ---
MEDICATED FOR ELEVATED TEMP OF 100.0 AT THIS TIME. INCONTINENT CARE PROVIDED. REPOSITIONED. FAMILY REMAINS AT BEDSIDE. CONTINUE WITH COMFORT CARE.
[2017-05-08 16:42] VITALS: BP 101/55
[2017-05-08 19:00] VITALS: BP 123/64
--- NOTE | 2017-05-08 21:40 | NUR ---
PT LYING IN BED, UNRESPONSIVE, FAMILY AT BEDSIDE. PT DEMONSTRATES GENERALIZED FLACCIDITY, AND FEBRILE WITH AN AXILLARY TEMP OF 102.2. PRN TYLENOL SUPPOSITORY GIVEN, ALONG WITH PRN DILAUDED AND ZOFRAN. PT DEMONSTRATES THICK, YELLOW SECRETIONS WITH SUCTIONING. I HAVE EXPLAINED TO FAMILY THAT THE FEVER IS A SECONDARY PROBLEM R/T PTS RECENT CVA, AND THAT IF THEY CHOOSE, I COULD PLACE ICE PACKS UNDER PTS ARMS TO TRY AND ASSIST WITH BRINGING HER FEVER DOWN. FAMILY WILL DECIDE AFTER WE RECHECK PTS TEMP IF THAT IS WHAT THEY WANT TO DO OR NOT. FAMILY DENIES ANY NEEDS. CONTINUE TO MONITOR PT CLOSELY.
--- NOTE | 2017-05-08 22:42 | NUR ---
TEMP RECHECKED WAS 101.6 AXILLARY
--- NOTE | 2017-05-09 00:54 | NUR ---
PT STILL WITH 101.6 AXILLARY TEMP. ICE PACKS HAVE BEEN PLACED ON EACH SIDE OF PT UNDER BOTH ARMS. FAMILY REMAINS AT BEDSIDE. CONTINUE TO MONITOR CLOSELY.
--- NOTE | 2017-05-09 06:45 | NUR ---
PT REMAINS UNRESPONSIVE, FAMILY AT BEDSIDE, NO NEEDS AT THIS TIME.
--- NOTE | 2017-05-09 07:15 | NUR ---
RECEIVED REPORT. ASSUMED CARE OF PATIENT. FAMILY REMAINS AT BEDSIDE. PATIENT REMAINS LETHARGIC. COMFORT CARES PROVIDED.
--- NOTE | 2017-05-09 07:40 | NUR ---
PATIENT NOTED TO BE TACHYCARDIAC, 114, RESP AT 40, AUDIBLE GURGILING NOTIED. SUCTIONED AND ORAL CARE PROVIDED. O2 SAT INCREASED FROM 84 TO 91 AFTER SUCTIONING. PATIENT SNEEZED 5 TIMES. BREATH SOUNDS DRAMATICALLY IMPROVED AFTER SNEEZING AND O2 SAT AT 92. PATIENT CONDITION REMAINS UNCHANGED. PATIENT IS UNRESPONSIVE. POSITIONED FOR COMFORT. FAMILY AT BEDSIDE. SUCTION CANISTER CHANGED.
[2017-05-09 08:00] VITALS: BP 116/76
--- NOTE | 2017-05-09 08:02 | NUR ---
PATIENT MEDICATED FOR AIR HUNGER AT THIS TIME. RESP 40. DECREASE IN AIR HUNGER NOTED. FAMILY REMAINS AT BEDSIDE. COMFORT MEASURES PROVIDED.
--- NOTE | 2017-05-09 10:48 | NUR ---
COMFORT CARES PROVIDED. ORAL SUCTIONING PROVIDED. FAMILY IS REQUESTING TO CHECK PT/INR. PATIENTS FAMILY WANTS TO MAKE SURE THAT HER PT/INR IS STAYING WITHIN THERAPUETIC RANGE TO PREVENT FURTHER CLOTS. PATIENTS STATES HE WANTS TO MAINTAIN PATIENTS CURRENT STATUS, NO LIFE SUPPORT BUT IF WE CAN DO ANYTHING TO MAKE SURE THAT SHE DOESN'T GET ANY WORSE. INFORMED PATIENTS FAMILY PAGE TO BE PLACED TO .
--- NOTE | 2017-05-09 11:35 | NUR ---
1100 SPOKE WITH AND RECEIVED ORDERS FOR DAILY PT/INR AND IF FAMILY WOULD LIKE WE CAN RECONSULT NEUROLOGY. ORDERS FOR LABS INPUTTED. 1115 TYLENOL SUPP ADMINISTERED FOR ELEVATED TEMPERATURE 1118 SPOKE WITH FAMILY AND INFORMED THEM THAT WE WOULD DRAW DAILY PT/INR PER THEIR REQUEST AND ASKED FAMILY IF THEY WANTED NEUROLOGY CONSULTED AND THEY STATED YES, IT WOULD NOT HURT TO SEE IF NEUROLOGY COULD TREAT PATIENT. 1135 SPOKE WITH . WHEN GAVE PATIENTS NAME AND SLIGHT HISTORY ON PATIENT HE SAID THAT HE CAME TO THE HOSPITAL TO SEE THE PATIENT BECAUSE HE HAD A CONSULT AND THEN FOUND THAT IT WAS CANCELLED BECAUSE PATIENT IS DNR WITH COMFORT MEASURES ONLY. INFORMED THAT PATIENT REMAINS DNR, FAMILY WANTS NO LIFE SUPPORT BUT WANTS TO TRY AND MAINTAIN PATIENT AND PREVENT HER GETTING WORSE. REPORT ON PATIENT STATUS GIVEN TO -PATIENT IS LETHARGIC, BARELY WITH GAG REFLEX, DECREASE O2 SATURATION, ELEVATED TEMP. STATES THAT HE HAS BEEN HERE TWICE TODAY AND IS UNABLE TO RETURN TO HOSPITAL TODAY. THANKED FOR CALLING THIS DIRECTOR OF STUDENT LIFE BACK.
[2017-05-09 11:59] LABS: INR 1.25 (0.85-1.17); PROTIME 15.6 SECONDS (11.6-15.0)
[2017-05-09 12:04] VITALS: BP 120/67
--- NOTE | 2017-05-09 12:57 | NUR ---
NEW ORDERS RECEIVED FROM . ENTERED INTO SYSTEM.
--- NOTE | 2017-05-09 14:00 | NUR ---
CXR COMPLETED. BC X 2 DRAWN. CEFTRIAXONE INFUSING. PROCALAMINE INFUSING AT 50 ML/HR ORDERED. PATIENT REPOSITIONED AND PULLED UP IN BED. ORAL CARE PROVIDED. FAMILY REMAINS AT BEDSIDE.
[2017-05-09 16:00] VITALS: BP 105/55
--- NOTE | 2017-05-09 17:34 | NUR ---
TYLENOL SUPPOSITORY ADMINISTERED AT THIS TIME. TURNED/REPOSITIONED. INCONTINENT CARE PROVIDED. PATIENTS AT BEDSIDE. PROCALAMINE AND NS @ KVO INFUSING ORDERED AT TWO DIFFERENT SITE. PATIENT IS NOTED TO NOW HAVE ABNORMAL FLEXTION OF THE EXTREMITIES. DOES NOT FOLLOW COMMANDS. WILL CONTINUE TO PROVIDED COMFORT MEASURES.
--- NOTE | 2017-05-09 18:34 | NUR ---
CALLED TO PATIENT ROOM BY SPOUSE SPOUSE REPORTS PATIENT IS BITTING HER TONGUE. PATIENT LYING IN BED, NO ACTIVITY NOTED. TIP OF TONGUE NOTED TO BE STICKING OUT AND PATIENT CLENCHED DOWN. ABLE TO PROVIDE ORAL CARE AND SUCTIONING AT THIS TIME, PATIENT RELEASED TIP OF TONGUE. PATIENT NOTED TO HAVE SLIGHT TURNING OF EXTREMITIES AWAY FROM BODY (DECEREBRATE POSTURING) DURING ANY STIMULATION OR SUCTIONING. REMAINS WITH ELEVATED TEMP. REPOSITIONED AT THIS TIME. CALL LIGHT WITHIN REACH. NOT BITTING DOWN ON TONGUE AT THIS TIME. PATIENTS AT BEDSIDE.
--- NOTE | 2017-05-09 19:43 | NUR ---
RECEIVED REPORT, WILL ASSUME CARE OF PT, PT IS UNRESPONDSIVE, AT BEDSIDE,SRX2, WILL CONTINUE PLAN OF CARE
[2017-05-09 20:00] VITALS: BP 131/63
--- NOTE | 2017-05-10 00:08 | NUR ---
CALL LIGHT IN REACH, WILL CONTINUE WITH PLAN OF CARE.
--- NOTE | 2017-05-10 04:10 | NUR ---
PT BREATHING IS NON-LABOR, BED IS LOW, SRX2, IS AT BEDSIDE, WILL CONTINUE PLAN OF CARE
[2017-05-10 06:29] LABS: INR 1.37 (0.85-1.17); PROTIME 16.8 SECONDS (11.6-15.0)
--- NOTE | 2017-05-10 07:30 | NUR ---
ASSESSMENT COMPLETED. LETHARGIC, NO MOVEMENT NOTED, LEFT ARM WITH AN IV OF PROCALMINE AT 50 AND RIGHT FA WITH NS AT 30, FAMILY AT BEDSIDE. PT HAS A PACEMAKER.LEFT FOOT HAS A DRSG ON IT. PT IS INCONTIENT
--- NOTE | 2017-05-10 07:51 | NUR ---
DR. MATHEW VISITED AND ORDERS RECEIVED FOR CT SCAN THIS AM AND HE WANTS RADILOGIST TO CALL HIM WITH RESULTS. RASTA IN RADIOLOGY INFORMED OF THIS. RADIOLOGY GVIEN DR. MATHEW'S PAGER NUMBER.
[2017-05-10 09:57] LABS: BASOPHILS 0.2 % (0-2); EOSINOPHILS 0 % (0-7); HEMATOCRIT 43.2 % (36.0-48.0); HEMOGLOBIN 13.6 g/dL (12-16); IMMATURE GRANULOCYTES 0.2 % (0-5); LYMPHOCYTES 6.9 % (15-50); MCH 31.3 pg (26.0-34.0); MCHC 31.5 g/dL (31.0-37.0); MCV 99.5 fL (80.0-100.0); MEAN PLATELET VOLUME 12.8 fL (7.4-10.4); MONOCYTES 8.3 % (2-11); NEUTROPHILS 84.4 % (40-80); PLATELET COUNT 218 10x3/uL (130-400); RBC 4.34 10x6/uL (4.00-5.40); RDW 16.5 % (11.5-14.5); WBC 13.1 10x3/uL (4.8-10.8)
[2017-05-10 10:14] LABS: ANION GAP 16.7 mmol/L (8-16); CALCIUM 9.5 mg/dL (8.5-10.1); CARBON DIOXIDE 24.2 mmol/L (21.0-32.0); CREATININE - SERUM 2.7 mg/dL (0.6-1.3); POTASSIUM - SERUM 4.9 mmol/L (3.5-5.1)
[2017-05-10 10:34] VITALS: BP 125/79
[2017-05-10 12:00] VITALS: BP 115/81
[2017-05-10 16:34] VITALS: BP 103/66
--- NOTE | 2017-05-10 18:38 | NUR ---
LYING QUIETLY WITH NO RESPONCE. REPOSITIONED AND BED CHANGED. FAMILY AT BEDSIDE. WILL MONITOR
[2017-05-10 19:00] VITALS: BP 137/86
--- NOTE | 2017-05-10 19:30 | NUR ---
RECEIVED REPORT, WILL ASSUME CARE OF PT, PT IS UNRESPONDSIVE, SCD ARE ON, FAMILY AT BEDSIDE, STATES SHE IS BETTER TODAY, WILL CONTINUE PLAN OF CARE
[2017-05-11] VITALS: BP 142/92
--- NOTE | 2017-05-11 00:10 | NUR ---
FAGOT HEATER AT BED SIDE TO OBTAIN VITALS.
--- NOTE | 2017-05-11 00:33 | NUR ---
HELP MASTER GLAZIER ISA GET PT CLEANED UP/ LINEN CHANGE, REPOSITION PT
--- NOTE | 2017-05-11 03:08 | NUR ---
PT RESTING IN BED WITH NO DISTRESS. RESPS EVEN/NONLABORED. MONITOR AND CPOC. CALL LIGHT IN REACH. BED LOW. MULTIPLE FAMILY PRESENT.
[2017-05-11 04:00] VITALS: BP 117/81
[2017-05-11 05:30] LABS: BASOPHILS 0.2 % (0-2); EOSINOPHILS 0 % (0-7); HEMATOCRIT 46.3 % (36.0-48.0); HEMOGLOBIN 14.6 g/dL (12-16); IMMATURE GRANULOCYTES 0.3 % (0-5); LYMPHOCYTES 10.2 % (15-50); MCH 31.3 pg (26.0-34.0); MCHC 31.5 g/dL (31.0-37.0); MCV 99.4 fL (80.0-100.0); MEAN PLATELET VOLUME 13.4 fL (7.4-10.4); MONOCYTES 8.9 % (2-11); NEUTROPHILS 80.4 % (40-80); RBC 4.66 10x6/uL (4.00-5.40); RDW 16.3 % (11.5-14.5); WBC 12.2 10x3/uL (4.8-10.8)
[2017-05-11 05:31] LABS: PLATELET COUNT 271 10x3/uL (130-400)
[2017-05-11 05:46] LABS: INR 1.51 (0.85-1.17); PROTIME 18.1 SECONDS (11.6-15.0)
[2017-05-11 05:56] LABS: ALBUMIN 2.5 g/dL (3.4-5.0); ANION GAP 20.5 mmol/L (8-16); BILIRUBIN - TOTAL 0.89 mg/dL (0.2-1.3); CALCIUM 9.7 mg/dL (8.5-10.1); CARBON DIOXIDE 20.9 mmol/L (21.0-32.0); CREATININE - SERUM 3.3 mg/dL (0.6-1.3); POTASSIUM - SERUM 5.4 mmol/L (3.5-5.1); PROTEIN - SERUM 8.2 g/dL (6.4-8.2)
--- NOTE | 2017-05-11 07:24 | NUR ---
PAGEMAGDALENA CABEZAS FOR ORDERS DUE TO LABS RESULTING. RECEIVED NEW ORDERS AND INPUTTED AT THIS TIME WITH HELP OF PHARMACIST, BIMAL. PATIENT CONTINUES TO BE LETHARGIC AT THIS TIME SO UNABLE TO ADMINISTER KAYEXELATE.
--- NOTE | 2017-05-11 08:20 | NUR ---
NONREBREATHER MASK PLACED PER THIS WRITERS REQUEST FROM RT. O2 SAT INCREASE FROM 84-85 TO 96-97 AT THIS TIME.
[2017-05-11 08:23] VITALS: BP 204/117
--- NOTE | 2017-05-11 09:23 | NUR ---
PATIENT CONTINUES TO BE LETHARGIC. FAMILY AT BEDSIDE. TURNED AND REPOSITIONED. INCONT CARE PROVIDED. COMFORT CARE PROVIDED.
--- NOTE | 2017-05-11 10:03 | NUR ---
CALL PLACED TO MAGDALENA ALEJO TO REQUEST IV PAIN MEDICATION TO BE RESTARTED THAT HAS FALLEN OFF OF EMAR AFTER 72 HOURS. RESP 42, HR 130. NEW ORDERS RECEIVED FOR DILAUDID 1MG PO Q4PRN. ORDERS INPUTTED.
--- NOTE | 2017-05-11 10:16 | NUR ---
MEDICATED FOR AIR HUNGER AT THIS TIME. RESP 42. HR 130. RESP DOWN TO 34 AT THIS TIME, HR 116. REMAINS ON NON REBREATHER MASK. O2 99% FAMILY REMAINS AT BEDSIDE.
[2017-05-11 10:37] VITALS: Ht 167.6 cm; Wt 80.3 kg
--- NOTE | 2017-05-11 11:38 | NUR ---
PATIENTS CONDITION REMAINS UNCHANGED. PATIENT IS LETHARGIC. PROCALAMINE INFUSING ORDERED. FAMILY REMAINS AT BEDSIDE. FAMILY REQUESTING MEDINA CATHETER BE PUT IN BECAUSE THE DOCTOR ORDERED ON LAST NIGHT HOWEVER, NO ORDERS FOR MEDINA CATHETER HAVE BEEN PLACED. WILL CALL NURSE PRACTITIONER AGAIN.
[2017-05-11 12:13] VITALS: BP 92/60
--- NOTE | 2017-05-11 12:35 | NUR ---
16 FR MEDINA CATHETER PLACED VIA STERILE TECHNIQUE. 250 CC CLOUDY DARK STRAW COLOR URINE RETURNED. NO CHANGE OF PATIENTS CONDITION. UA SENT TO LAB AT THIS TIME. CONTINUE WITH COMFORT CARES. TURNED AND REPOSTIONED AT THIS TIME.
[2017-05-11 13:32] LABS: APPEARANCE CLOUDY (CLEAR); BILIRUBIN NEGATIVE (NEGATIVE); COLOR YELLOW (YELLOW); GLUCOSE NEGATIVE (NEGATIVE); KETONE NEGATIVE (NEGATIVE); LEUKOCYTE ESTERASE 2+ (NEGATIVE); NITRITE NEGATIVE (NEGATIVE); PROTEIN TRACE mg/dL (NEGATIVE); SPECIFIC GRAVITY 1.015 (1.005-1.020); UROBILINOGEN NORMAL (NORMAL)
[2017-05-11 13:33] LABS: BACTERIA MODERATE /hpf (NONE SEEN); EPITHELIAL CELLS OCC /hpf (0-5); WHITE CELLS - URINE >50 /hpf (0-5)
--- NOTE | 2017-05-11 16:07 | NUR ---
Wound care consult: Pt has surgical wound approx 2 weeks old to left foot (amputation of great toe). Incision measures 1cm x 0.5cm x 4cm. The wound bed is red and there is no odor. Current treatment is loosely packing with 1/4" plain packing and covering with 4x4s secure with kerlix. There is another wound measuring 1.5cm x 2.5cm x 0.3cm on the distal plantar of left foot. This is being protected with dry dressing. Wound care will continue monitoring.
[2017-05-11 16:10] VITALS: BP 113/54
--- NOTE | 2017-05-11 18:14 | NUR ---
TURNED AND REPOSITIONED. MEDINA CATH PATENT. HR DIPPING DOWN INTO THE 50'S AT THIS TIME. FAMILY REMAINS AT BEDSIDE. CALL LIGHT WITHIN REACH. COMFORT CARE PROVIDED.
[2017-05-11 19:00] VITALS: BP 120/81
--- NOTE | 2017-05-11 20:45 | NUR ---
PT LYING IN BED, SUPINE, UNRESPONSIVE, PROGRAM EVALUATION CONSULTANT'S AT BEDSIDE, FAMILY OUT IN THE [place], CAROTID U/S BEING DONE. NON-REBREATHER MASK IN PLACE ON 15LPM, FAMILY/FRIEND DENY ANY NEEDS AT THIS TIME. CONTINUE TO MONITOR PT CLOSELY. BED LOW, CALL LIGHT IN REACH, SIDE RAILS X 2, HOB 25-30 DEGREES.
[2017-05-12] VITALS: BP 128/72
--- NOTE | 2017-05-12 03:57 | NUR ---
PT REMAINS UNRESPONSIVE, FAMILY AT BEDSIDE. CONTINUE TO MONITOR CLOSELY. BED LOW, CALL LIGHT IN REACH, SIDE RAILS X 2, HOB 30 DEGREES, NON-REBREATHER MASK ON WITH CONTINUOUS PULSE OX.
[2017-05-12 04:00] VITALS: BP 116/72
[2017-05-12 06:06] LABS: INR 1.69 (0.85-1.17); PROTIME 19.9 SECONDS (11.6-15.0)
--- NOTE | 2017-05-12 07:25 | NUR ---
ASSESSMENT DONE. FAMILY AT BEDSIDE. FAMILY HAD NO NEEDS AT THIS TIME.
[2017-05-12 07:50] VITALS: BP 95/65
--- NOTE | 2017-05-12 09:39 | NUR ---
PER FAMILIES REQUEST, A CALL WAS PLACED TO DR NOGUERA'S OFFICE TO LET HIM KNOW OF THE PATIENTS CURRENT STATUS. SPOKE WITH HIS NURSE ZAID WHO WILL GET HIM THE MESSAGE. A PAGE WAS ALSO PLACED TO DR SALVADOR PER FAMILIES REQUEST. THEY WANT TO TALK TO HIM AND THEN POSSIBLY PUT PATIENT IN COMFORT CARE AND "LET THE LORDS WILL BE DONE."
[2017-05-12 11:19] VITALS: BP 106/66
--- NOTE | 2017-05-12 11:57 | NUR ---
ROUNDING COMPLETED FOR LIVESTOCK CARETAKER. PT IS RESTING QUIETLY IN BED WITH EYES CLOSED. MULTIPLE FAMILY MEMBERS AT BEDSIDE DENY ANY CURRENT NEEDS. CL IN REACH. WILL CTM.
--- NOTE | 2017-05-12 13:06 | NUR ---
Patient Name: STEPHANIE GUO Admission Status: ER Accout number: [id number] Admission Date: 05-08-2017 : 1945 Admission Diagnosis: Attending: FROYLAN RAMIREZ Current LOS: 4 Anticipated DC Date: 05-12-2017 Planned Disposition: Hospice Medical Facility Primary Insurance: [employer] CHOICE PPO MCR [employer]ANT PLANNED EXTERNAL PROVIDER: [facility] Discharge Planning Comments: * Is the patient Alert and Oriented? Yes 0 * How many steps to enter\exit or inside your home? 3 0 * PCP DR. COLLIER 0 * Pharmacy [facility] 0 * Preadmission Environment Home with Family 0 * ADLs Independent 0 * Equipment Cane Glucometer 0 * Other Equipment NO MEDICAL EQUIPMENT PROVIDER PREFERENCE 0 * List name and contact numbers for known caregivers / representatives who currently or will assist patient after discharge: JOE STACK, SPOUSE, 0 * Community resources currently utilized None 0 * Please name any agencies selected above. NONE 0 * Additional services required to return to the preadmission environment? Yes * Can the patient safely return to the preadmission environment? Yes 0 * Has this patient been hospitalized within the prior 30 days at any hospital? Yes 0 CM RECEIVED HOSPICE ORDER, MET WITH PT'S SPOUSE IN ROOM WITH PT. PT UNRESPONSIVE. CM DISCUSSED HOSPICE ORDER, OPTIONS AND PROVIDERS FOR HOSPICE. CM PROVIDED SPOUSE WITH HOSPICE LISTING AND BROCHURES THAT WERE AVAILABLE FOR LOCAL HOSPICE AGENCIES. PT'S SPOUSE REPORTS HE WANTS HOSPICE WITH [facility] FOR PT TO STAY HERE AT [place]. IMPORTANT MESSAGE FROM MEDICARE PROVIDED AND EXPLAINED. CM CONTACT INFORMATION PROVIDED TO FAMILY. CM CALLED [facility], , PROVIDED REFERRAL TO [facility] AND FAXED REFERRAL TO [facility] AT [phone]. [facility] OF HOSPICE ARRIVED TO MEET WITH FAMILY AND EVALUATE FOR HOSPICE. CM WAITING [facility] ADMISSION DETERMINATION. Collar Feller: Phillip Irby
--- NOTE | 2017-05-12 13:29 | NUR ---
PT REFUSES ALL MEDS AT THIS TIME D/T HER BEING PUT ON HOSPICE TODAY
== END 2017-05-12 14:52 | disposition hospice, inpatient (51) | DRG 64 ==
LOC: D.ER 21:07 → D.M2 05-08 00:32
PROVIDERS: Emergency Medicine; Family Medicine; ADMIT Family Medicine
PROC: 0T9B70Z Drainage of Bladder with Drainage Device, Via Natural or Artificial Opening (ICD-10-PCS; principal; 2017-05-11)
DX: I63.513 Cerebral infarction due to unspecified occlusion or stenosis of bilateral middle cerebral arteries (principal); R40.2313 Coma scale, best motor response, none, at hospital admission; R40.2113 Coma scale, eyes open, never, at hospital admission; R40.2213 Coma scale, best verbal response, none, at hospital admission; I11.0 Hypertensive heart disease with heart failure; I50.9 Heart failure, unspecified; I48.2 Chronic atrial fibrillation; E11.40 Type 2 diabetes mellitus with diabetic neuropathy, unspecified; Z66 Do not resuscitate; I25.10 Atherosclerotic heart disease of native coronary artery without angina pectoris; Z95.0 Presence of cardiac pacemaker; Z86.711 Personal history of pulmonary embolism; Z79.01 Long term (current) use of anticoagulants

== ENCOUNTER 2017-05-12 15:27 | Inpatient (IN) | payer OTHER | END 2017-05-12 22:17 | disposition PTX | DRG 951 | LOC: D.M2 15:27 | PROVIDERS: ADMIT Legal Medicine | DX: Z51.5 Encounter for palliative care (principal) ==